=== PATIENT | male | born 1970 ===

== ENCOUNTER 2018-07-05 01:19 | Emergency (ER) | payer SELFPAY ==
[2018-07-05 01:23] VITALS: TEMP 98.1; BMI 23.7
--- NOTE | 2018-07-05 01:53 | ED PDOC ---
HPI: Psych/Substance Abuse Time Seen by Provider: 07/05/18 01:33 Chief Complaint (Nursing): Psychiatric Evaluation Chief Complaint (Provider): Psychiatric evaluation History Per: Patient History/Exam Limitations: no limitations Additional Complaint(s): 48yo male, brought in by ambulance for psychiatric evaluation as patient was noted to be agitated. Patient states he went to the police department to file a report for a stolen phone; per police, patient was noted to be agitated, seemingly intoxicated, and verbalized suicidal ideation. At present, patient denies any suicidal or homicidal ideation. He has no medical complaints. Denies any history of mental illness. PMD: None Past Medical History Reviewed: Historical Data, Nursing Documentation, Vital Signs Vital Signs: Last Vital Signs Temp 98.1 F 07/05/18 01:24 Pulse 78 07/05/18 01:24 Resp 18 07/05/18 01:24 BP 147/105 H 07/05/18 01:24 Pulse Ox 97 07/05/18 01:24 - Medical History PMH: No Chronic Diseases Denies: Anxiety, Depression, Diabetes, HTN - Surgical History Surgical History: No Surg Hx - Family History Family History: States: No Known Family Hx - Allergies Allergies/Adverse Reactions: Allergies Allergy/AdvReac Type Severity Reaction Status Date / Time No Known Allergies Allergy Verified 07/05/18 01:24 Review of Systems ROS Statement: Except As Marked, All Systems Reviewed And Found Negative Psych: Negative for: Suicidal ideation Physical Exam - Reviewed Nursing Documentation Reviewed: Yes Vital Signs Reviewed: Yes - Physical Exam Comments: GENERAL APPEARANCE: Patient is awake, alert, oriented x 3, in no acute distress. SKIN: Warm, dry; (-) cyanosis EYES: (+) bilateral conjunctival injection (-) mucus discharge ENMT: Mucous membranes moist. Airway patent: (-) stridor. NECK: Supple, FROM HEART AND CARDIOVASCULAR: (-) irregularity CHEST AND RESPIRATORY: (-) rales, (-) rhonchi, (-) wheezes; breath sounds equal. Respirations even and nonlabored. ABDOMEN: Soft, (-) distention, (-) tenderness, (-) guarding. NEURO AND PSYCH: Mental status as above. Affect: Calm, appropriate. 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 Pupils equal and reactive; EOMI; (-) facial asymmetry. Gait steady, speech clear. - ECG O2 Sat by Pulse Oximetry: 97 (RA) Pulse Ox Interpretation: Normal Medical Decision Making Medical Decision Making: Impression: Psychiatric evaluation Plan: * Alcohol serum * Crisis evaluation * 1:1 Observation Accucheck: 117 Serum Alcohol: 169 0252 Repeat BP: 119/69 Repeat HR: 61 Per crisis evaluation, patient to be discharged with the diagnosis of adjustment disorder per Dr Julien. On re-evaluation, patient reports improvement of symptoms. On exam, patient remains AAOx3, in no acute distress. Lungs clear to auscultation, cardiac RRR, repeat neuro exam shows no focal findings. Gait steady without assistance. VSS, stable for discharge. Lab/Diagnostic results d/w the patient in great detail. Diagnosis of adjustment disorder d/w the patient. Based on history, exam and diagnostic results, plan will be for outpatient follow up. Patient instructed to follow-up with pmd / referral provided / the clinic in 1- 2 days without fail. Return to the emergency room at any time for any new or worsening symptoms. Patient states he fully agrees with and understands discharge instructions. States that he agrees with the plan and disposition. Verbalized and repeated discharge instructions and plan. I have given the patient opportunity to ask any additional questions. Scribe Attestation: Documented by Erin Stinson, acting as a scribe for NILESH Zarco. Provider Scribe Attestation: All medical record entries made by the Scribe were at my direction and personally dictated by me. I have reviewed the chart and agree that the record accurately reflects my personal performance of the history, physical exam, medical decision making, and the department course for this patient. I have also personally directed, reviewed, and agree with the discharge instructions and disposition. Disposition - Clinical Impression Clinical Impression: Adjustment disorder, Alcohol ingestion - Patient ED Disposition Is Patient to be Admitted: No Counseled Patient/Family Regarding: Studies Performed, Diagnosis, Need For Followup, Rx Given - Disposition Referrals: [facility] [Outside] Disposition: Routine/Home Disposition Time: 02:53 Condition: FAIR Additional Instructions: La atencin mdica de emergencia que recibi hoy se dirigi a los sntomas agudos de presentacin. Si le prescribieron algn medicamento, por favor ll alfonso y d jacob se lo indic. Marge sntomas pueden tardar varios corey en resolverse. Regrese al Departamento de Emergencia en cualquier momento si los s ntomas empeoran, no mejoran o si surge algn otro problema. Comunquese con zuñiga mdico en 2 corey para meghann reevaluacin y seguimiento / o llame a yancy de los mdicos / clnicas a los que reina referido y que figura en el formulario de Informacin de visitas del paciente que se incluye en zuñiga paquete de shauna. Lleve todos los documentos que recibi al momento del shauna junto con los medicamentos a zuñiga visita de seguimiento. Nuestro tratamiento no puede reemplazar la atencin mdica en curso por parte de un proveedor de atencin primaria (PCP) fuera del departamento de emergencias. Instructions: Adjustment Disorder, Effects of Alcohol on Your Health Forms: [facility] (Polish) Print Language: BRAZILIAN - POA Present On Arrival: None Results - Lab Results Lab Results: 07/05/18 02:10 Alcohol, Quantitative 169 H
[2018-07-05 03:25] VITALS: BP 119/69; PULSE 61; RESP 17
[2018-07-06 13:23] VITALS: O2SAT 97
== END 2018-07-05 03:25 | disposition home or self-care (01) ==
LOC: H.ER 01:19
DX: F43.20 Adjustment disorder, unspecified (principal)
CPT/HCPCS: 82948; 99283; G0480